=== PATIENT | female | born 1980 | race Caucasian/White ===

== ENCOUNTER 2017-03-16 11:27 | Day surgery (SDC) | payer BC ==
[~2017-03-16] VITALS: Ht 170.2 cm; Wt 80.9 kg
[~2017-03-16 11:27] MED LIST: ELAVIL10 MG PO; NOHOMEMEDS; VITAMIN B125000 MCG PO
[2017-03-16 12:29] VITALS: BP 149/88
[2017-03-16] MEDS ORDERED: MOTRIN600 MG PO (15:45)
[2017-03-16] MEDS ORDERED: NORCO 5/3251 TABLET PO (15:45)
[2017-03-16 16:14] VITALS: BP 130/73
[2017-03-16 17:10] VITALS: BP 113/74
== END 2017-03-16 17:16 | disposition home or self-care (01) ==
LOC: SDC 11:27
DX: N92.1 Excessive and frequent menstruation with irregular cycle (principal); N84.0 Polyp of corpus uteri; F41.9 Anxiety disorder, unspecified; G89.29 Other chronic pain; M54.5 Low back pain; E66.3 Overweight; Z68.28 Body mass index [BMI] 28.0-28.9, adult; Z91.040 Latex allergy status; Z80.49 Family history of malignant neoplasm of other genital organs; Z82.49 Family history of ischemic heart disease and other diseases of the circulatory system; Z83.3 Family history of diabetes mellitus; Z83.49 Family history of other endocrine, nutritional and metabolic diseases; Z80.52 Family history of malignant neoplasm of bladder; Z82.5 Family history of asthma and other chronic lower respiratory diseases
CPT/HCPCS: 88305; J0131; J1100; J1885; J2250; J2405; J3010